=== PATIENT | female | born 1975 ===

== ENCOUNTER 2024-08-22 14:24 | Emergency (ER) | payer OTHER ==
[~2024-08-22] VITALS: Ht 152.4 cm; Wt 47.7 kg
[2024-08-22 14:28] VITALS: TEMP 98.5
[2024-08-22] MEDS ORDERED: ATOR20TA PO (14:30)
[2024-08-22] MEDS ORDERED: ATOR20TA65 PO (16:51)
[2024-08-22 17:10] LABS: BASOPHILS % (AUTO) 0.7 % (0.0-2.0); EOSINOPHILS % (AUTO) 2.1 % (1.0-6.0); HEMATOCRIT 42.3 % (36-46); LYMPHOCYTES # (AUTO) 2.1 K/uL (1.0-4.8); LYMPHOCYTES % (AUTO) 36.6 % (22.0-44.0); MEAN CORPUSCULAR HEMOGLOBIN 31.8 pg (26.0-34.0); MEAN CORPUSCULAR HGB CONC 33.1 G/dL (31.0-37.0); MEAN CORPUSCULAR VOLUME 96 fL (80-100); MONOCYTES # (AUTO) 0.3 K/uL (0.1-1.0); MONOCYTES % (AUTO) 5.7 % (2.0-9.0); NEUTROPHILS # (AUTO) 3.1 K/uL (1.8-7.7); NEUTROPHILS % (AUTO) 54.9 % (40.0-70.0); PLATELET COUNT (AUTO) 290 K/uL (150-450); RED BLOOD CELL COUNT(AUTO) 4.41 MIL/uL (4.00-5.20); RED CELL DISTRIBUTION WIDTH 13.5 % (11.5-14.5); WHITE BLOOD COUNT (AUTO) 5.7 K/uL (4.5-11.0)
[2024-08-22 17:16] LABS: ANION GAP 6 mmol/L (8-16); CALCIUM, TOTAL 9.2 mg/dL (8.8-10.5); CARBON DIOXIDE 30 mmol/L (22-29); CHLORIDE 101 mmol/L (98-107); CREATININE 0.66 mg/dL (0.60-1.30); GLOMERULAR FILTR. RATE CALC > 60 mL/min (>60); GLUCOSE,RANDOM 112 mg/dL (70-110); POTASSIUM 3.5 mmol/L (3.5-5.1); SODIUM SERUM 137 mmol/L (136-145); UREA NITROGEN, BLOOD 8 mg/dL (7-18)
[2024-08-22 17:24] LABS: TROPONIN I-HIGH SENSITIVITY 4 ng/L (<51)
[2024-08-22] MEDS: DiphenhydrAMINE HCL 50 MG/ML VIAL IVP ONE (17:43)
[2024-08-22] MEDS: ACETAMINOPHEN 325 MG TABLET PO ONE (17:44)
[2024-08-22] MEDS: KETOROLAC TROMETHAMINE 30 MG/ML VIAL IVP ONE (17:44)
[2024-08-22] MEDS: PROCHLORPERAZINE EDISYLATE 5 MG/ML 2 ML VIAL IVP ONE (17:44)
[2024-08-22] MEDS: SODIUM CHLORIDE 0.9% 1,000 ML IV ONE (17:44)
[2024-08-22 18:04] VITALS: BP 110/65; PULSE 70; RESP 14; O2SAT 100
== END 2024-08-22 19:18 | disposition home or self-care (01) ==
LOC: EMS 14:24
DX: G43.909 Migraine, unspecified, not intractable, without status migrainosus (principal); R20.0 Anesthesia of skin; E78.00 Pure hypercholesterolemia, unspecified; Z98.890 Other specified postprocedural states
CPT/HCPCS: 99284; 96374; 96361; 96375; 80048; 84484; 85025; 36415; 93005; J1200; J1885; J7030; J0780